=== PATIENT | male | born 1955 | race Caucasian/White ===

== ENCOUNTER 2019-12-25 05:27 | Day surgery (SDC) | payer BC ==
[~2019-12-25] VITALS: Ht 182.9 cm; Wt 96.3 kg
[2019-12-25] VITALS (9 sets, daily range): BP systolic 106–134; BP diastolic 58–88
[~2019-12-25 05:27] MED LIST: ASPI-10 PO; ATEN50TA PO; CLOP75TA35 PO; LISI-600 PO; MULT-227 PO
[2019-12-25] MEDS ORDERED: NICO-687 TOP (05:58)
[2019-12-25] MEDS ORDERED: FLUO10CA28 PO (05:59)
[2019-12-25] MEDS ORDERED: LORA-660 PO (05:59)
[2019-12-25] MEDS ORDERED: LORazepam 0.5 MG tablet PO PRN (06:00)
[2019-12-25] MEDS ORDERED: LIDOcaine/PRILOcaine 5gm cream TP ONE (06:00)
[2019-12-25] MEDS ORDERED: diphenhydrAMINE 25mg capsule PO PRN (06:00)
[2019-12-25] MEDS: normal saline 1,000 ML IV SCH ×2 (06:15→07:00)
[2019-12-25] MEDS ORDERED: midazolam 2 mg/2 ml injection ONE (07:17)
[2019-12-25] MEDS ORDERED: fentaNYL/PF 50MCG/1 ML 2ML syringe ONE (07:17)
[2019-12-25] MEDS ORDERED: iohexol 350MG/ML 100ml bottle IV ONE (07:17)
[2019-12-25] MEDS ORDERED: LIDOcaine 1% (10mg/ml)w/preservative injection 20ml MDV ONE (07:17)
[2019-12-25] MEDS ORDERED: heparin 1,000unit/ml 10ml vial 10 ML ONE (07:33)
[2019-12-25] MEDS ORDERED: verapamil 2.5 mg/ml inj IV ONE (07:33)
[2019-12-25] MEDS ORDERED: nitroGLYCERIN-Tridil 50MG/D5W 250 ML IV ONE (07:33)
[2019-12-25] MEDS ORDERED: nitroGLYCERIN 0.4mg SUBLingual tab SL PRN (08:45)
[2019-12-25] MEDS ORDERED: HYDROcodone/acetaminophen 5mg/325mg tablet PO PRN (08:45)
[2019-12-25] MEDS ORDERED: HYDROcodone/acetaminophen 10/325mg tab PO PRN (08:45)
[2019-12-25] MEDS ORDERED: OXAZEpam 15mg capsule PO PRN (08:45)
[2019-12-25] MEDS ORDERED: proCHLORperazine 10 MG/2 ml inj IV PRN (08:45)
[2019-12-25] MEDS ORDERED: ondansetron/PF 4mg/2ml inj IV PRN (08:45)
[2019-12-25] MEDS ORDERED: pneumococcal 23-VAL P-sac vacc 25 mcg/0.5ml vial IMVAC ONE (10:00)
== END 2019-12-25 11:55 | disposition home or self-care (01) ==
LOC: SSTAY O 05:27
PROVIDERS: ATTEND Internal Medicine Interventional Cardiology
DX: R94.39 Abnormal result of other cardiovascular function study (principal); I25.10 Atherosclerotic heart disease of native coronary artery without angina pectoris; I10 Essential (primary) hypertension; E11.9 Type 2 diabetes mellitus without complications; E78.5 Hyperlipidemia, unspecified; I65.23 Occlusion and stenosis of bilateral carotid arteries; J44.9 Chronic obstructive pulmonary disease, unspecified; Z86.73 Personal history of transient ischemic attack (TIA), and cerebral infarction without residual deficits; Z98.890 Other specified postprocedural states; Z79.01 Long term (current) use of anticoagulants; Z79.899 Other long term (current) drug therapy; Z87.891 Personal history of nicotine dependence; Z82.49 Family history of ischemic heart disease and other diseases of the circulatory system
CPT/HCPCS: 93005; 93458; 99152; 99153; C1769; C1894; J1644; J2001; J2250; J3010; J7030; Q0163; Q9967; A4620; A5120; J3490